=== PATIENT | female | born 1980 | race Caucasian/White ===

== ENCOUNTER 2018-05-02 03:45 | Emergency (ER) | payer OTHER ==
[~2018-05-02] VITALS: Ht 172.7 cm; Wt 88.9 kg
--- NOTE | ~2018-05-02 | EKG ---
[address] [address] [email or web address] [address] ELECTROCARDIOGRAM REPORT Name: HANSEL OSUNA Room #: DEP [facility]#: [id number] Admission: 05/02/18 Attend Phys: Discharge: 05/02/18 Date of : 76 Report #: [id number] THIS REPORT FOR: //name// [facility] ED Test Date: 2018-05-02 Test Time: 04:26:01 Pat Name: HANSEL OSUNA Department: Room: Gender: F [employer]: Katerina COTTON : 1980 Requested By: Elpidio Ortiz Order Number: [id number] MD: Chandan Farfan Measurements Intervals Fisk Rate: 79 P: 17 AK: 142 QRS: -19 QRSD: 82 T: 17 QT: 422 QTc: 484 Interpretive Statements Sinus rhythm Inferior infarct, old No previous ECG available for comparison Electronically Signed On 05-02-2018 8:16:52 CDT by Chandan Farfan [email or web address] <ELECTRONICALLY SIGNED> By: Chandan Farfan MD, [facility] 05/02/18815 0426 0426 Chandan Farfan MD, FACC /EPI
[~2018-05-02 03:45] MED LIST: NORCO 5-325 TA1 EACH PO; PENICILLIN V P500 MG PO
[2018-05-02 04:17] LABS: URINE BILIRUBIN NEGATIVE (Negative); URINE BLOOD NEGATIVE (Negative); URINE CLARITY CLEAR; URINE COLOR YELLOW; URINE GLUCOSE-RANDOM* 1+ (Negative); URINE KETONES 2+ (Negative); URINE LEUKOCYTES-REFLEX NEGATIVE (Negative); URINE NITRITE-REFLEX NEGATIVE (Negative); URINE PROTEIN (DIPSTICK) TRACE (Negative); URINE SPECIFIC GRAVITY >= 1.030 (1.005-1.035); URINE UROBILINOGEN 0.2 E.U./dl (0.2-1.0)
[2018-05-02 04:21] LABS: ABSOLUTE NEUTROPHILS 7.1 thou/uL (1.4-8.2); BASOPHILS 0.4 % (0.0-2.0); EOSINOPHILS 0.1 % (0.0-3.0); HEMATOCRIT 38.2 % (37.0-47.0); HEMOGLOBIN 12.9 gm/dL (12.0-15.0); LYMPHOCYTES 15.6 % (24.0-44.0); MCH 29.4 pg (26.0-34.0); MCHC 33.7 g/dL (28.0-37.0); MCV 87.2 fL (80.0-100.0); MONOCYTES 3.3 % (1.0-8.0); PLATELET COUNT 187 thou/uL (150-400); POLYS 80.6 % (36.0-66.0); RBC 4.38 mil/uL (4.20-5.00); RDW 12.6 % (10.5-14.5); WBC 8.8 thou/uL (4.0-11.0)
[2018-05-02 04:27] LABS: ANION GAP 12 mmol/L (7-16); BUN 9 mg/dL (7-18); CALCIUM 8.7 mg/dL (8.5-10.1); CHLORIDE 102 mmol/L (98-107); CO2 23 mmol/L (21-32); CREATININE 0.7 mg/dL (0.6-1.0); GLUCOSE 208 mg/dL (74-106); POTASSIUM 3.6 mmol/L (3.5-5.1); SODIUM 137 mmol/L (136-145)
[2018-05-02 04:35] LABS: ALBUMIN 3.9 g/dL (3.4-5.0); MAGNESIUM 1.8 mg/dL (1.8-2.4); SGOT 42 U/L (15-37); SGPT 82 U/L (30-65); TOTAL BILIRUBIN 0.6 mg/dL (<0.1-1.0); TROPONIN-I <0.06 ng/mL (<0.06)
[2018-05-02 04:41] LABS: AMP/METHAMP Negative (Negative); BARBITURATES Negative (Negative); BENZODIAZEPINES Negative (Negative); COCAINE Negative (Negative); METHADONE Negative (Negative); OPIATES Negative (Negative); PCP Negative (Negative)
[2018-05-02 04:46] LABS: APTT 28.2 Seconds (24.5-32.8); PROTIME 10.2 Seconds (9.3-11.4)
[2018-05-02] MEDS ORDERED: ATIVAN0.5 MG PO (04:55)
[2018-05-02 05:18] VITALS: BP 132/65
== END 2018-05-02 05:44 | disposition home or self-care (01) ==
LOC: ER 03:45
PROVIDERS: Emergency Medicine
DX: F45.8 Other somatoform disorders (principal); F41.8 Other specified anxiety disorders; Z88.7 Allergy status to serum and vaccine; Z91.041 Radiographic dye allergy status; Z86.718 Personal history of other venous thrombosis and embolism; Z90.49 Acquired absence of other specified parts of digestive tract; Z86.73 Personal history of transient ischemic attack (TIA), and cerebral infarction without residual deficits